=== PATIENT | female | born 2000 | race Caucasian/White ===

== ENCOUNTER 2018-03-14 14:42 | Emergency (ER) | payer OTHER ==
[~2018-03-14] VITALS: Ht 154.9 cm; Wt 66.4 kg
[2018-03-14 14:43] VITALS: TEMP 98.5
[2018-03-14] MEDS ORDERED: LOESTRIN 1/20 21DAY PO (14:49)
[2018-03-14 15:37] LABS: BASO % 0.4 % (0.0-2.0); EOS # 0.3 (0.0-0.7); EOS % 3.4 % (0-4.0); GRAN # 3.5 (1.4-6.5); GRAN % 48.7 % (42.2-75.2); HEMATOCRIT 40.9 % (35.0-45.0); HEMOGLOBIN 13.9 g/dl (12.0-15.0); LYMPH # 2.9 (1.2-3.4); LYMPH % 39.8 % (20.0-51.0); MEAN CELL VOLUME 94 fl (80.0-95.0); MEAN CORPUSCULAR HEMOGLOBIN 32 pg (26.0-32.0); MEAN CORPUSCULAR HGB CONC 34 g/dl (33.0-37.0); MONO # 0.6 (0.1-0.6); MONO % 7.6 % (1.7-9.3); PLATELET COUNT 263 K/mm3 (130-400); RED BLOOD COUNT 4.37 M/mm3 (4.10-5.30); REDCELL DISTRIBUTION WIDTH-CV 11.9 % (11.5-14.5)
[2018-03-14 15:57] LABS: ALANINE AMINOTRANSFERASE 19 U/L (9-52); ALBUMIN 4.1 gm/dL (3.5-5.0); ALKALINE PHOSPHATASE 54 U/L (50-136); ANION GAP 12 mmol/L (7-16); AST,SGOT 19 U/L (15-37); BILIRUBIN,TOTAL 0.3 mg/dL (0.0-1.0); BLOOD UREA NITROGEN 10 mg/dL (7-17); CALCIUM 9.2 mg/dL (8.4-10.2); CARBON DIOXIDE 23 mmol/L (22-30); CHLORIDE 103 mmol/L (98-107); CREATININE, serum 0.69 mg/dL (0.52-1.25); GLUCOSE 104 mg/dL (74-106); LIPASE 90 U/L (23-300); POTASSIUM 3.4 mmol/L (3.4-5.0); SODIUM 138 mmol/L (137-145); TOTAL PROTEIN 7.4 gm/dL (6.4-8.2)
[2018-03-14 16:08] LABS: TROPONIN-I < 0.012 ng/mL (0.000-0.034)
[2018-03-14] MEDS ORDERED: ZANTAC 7575 MG PO (16:44)
[2018-03-14 16:56] VITALS: BP 121/68; PULSE 79
== END 2018-03-14 16:57 | disposition home or self-care (01) ==
LOC: COL.ER 14:42
PROVIDERS: Emergency Medicine
DX: R07.89 Other chest pain (principal); F17.210 Nicotine dependence, cigarettes, uncomplicated